=== PATIENT | female | born 1985 | race Caucasian/White ===

== ENCOUNTER 2018-12-20 16:14 | Outpatient (CLI) | payer MEDICAID ==
[2018-12-20 17:15] LABS: CLARITY,URINE CLEAR (Clear); COLOR,URINE YELLOW (Yellow); GLUCOSE, URINE NEGATIVE (Neg); KETONES,URINE NEGATIVE (Neg); LEUKOCYTE ESTERASE ,URINE SMALL (Neg); NITRITES, URINE NEGATIVE (Neg); OCCULT BLOOD,URINE NEGATIVE (Neg); PROTEIN,URINE NEGATIVE (Neg); UROBILINOGEN,URINE 0.2 E.U/dL (0.2-1.0)
[2018-12-20 17:16] LABS: UA COLLECTION TYPE NON-SPECIFIED
[2018-12-20 17:20] LABS: BASOPHILS % (AUTO) 0.4 % (0-1); EOSINOPHILS # (AUTO) 0.1 X10'3 (0-0.9); EOSINOPHILS % (AUTO) 0.6 % (0-6); HEMOGLOBIN 13.3 g/dl (12.0-16.0); LYMPHOCYTES % (AUTO) 20.2 % (21-51); MEAN CORPUSCULAR HGB CONC 33.1 g/dL (33.0-36.5); MEAN CORPUSCULAR VOLUME 90.5 FL (78-98); MONOCYTES # (AUTO) 0.7 X10'3 (0-0.9); MONOCYTES % (AUTO) 7.3 % (2-12); NEUTROPHILS # (AUTO) 7.3 X10'3 (1.8-7.7); NEUTROPHILS % (AUTO) 71.5 % (42-75); PLATELET COUNT 155 X10'3 (140-440); RED BLOOD COUNT 4.42 X10'6 (4.20-5.60); RED CELL DISTRIBUTION WIDTH 14.5 % (11.5-14.5); WHITE BLOOD COUNT 10.1 X10'3 (4.5-11.0)
[2018-12-20 17:22] LABS: SQUAMOUS EPITHELIAL CELL,UR FEW /LPF (FEW)
[2018-12-20 17:23] LABS: RBC,URINE NONE SEEN /HPF (0-2); WBC,URINE 0-4 /HPF (0-4)
[2018-12-20 17:24] LABS: BACTERIA,URINE FEW /HPF (Neg)
[2018-12-20 18:01] LABS: LARGE PLATELETS MODERATE; PLATELET ESTIMATE NORMAL
[2018-12-22 05:22] LABS: VITAMIN D, 25-HYDROXY 19.8 ng/mL (30.0-100.0)
[2018-12-22 07:12] LABS: RPR Non Reactive (Non Reactive)
[2018-12-22 08:12] LABS: HBSAG SCREEN Negative (Negative)
[2018-12-22 11:10] LABS: RUBELLA ANTIBODIES, IGG 1.85 index (Immune >0.99)
== END 2018-12-20 23:59 | disposition home or self-care (01) ==
LOC: EDBD 16:14 → LAB 16:14
PROVIDERS: ATTEND Midwife
DX: Z34.81 Encounter for supervision of other normal pregnancy, first trimester (principal)
CPT/HCPCS: 36415; 81001; 82306; 83036; 85025; 86592; 86762; 86885; 87340